=== PATIENT | male | born 1995 | race Caucasian/White ===

== ENCOUNTER 2016-08-21 21:24 | Emergency (ER) | payer OTHER ==
[2016-08-21] MEDS ORDERED: LIDOCAINE 2% 10 ML MDV ONE (21:43)
[2016-08-21] MEDS ORDERED: CEPHALEXIN 250 MG Prepack 8 PO STA (21:59)
[2016-08-21] MEDS ORDERED: HYDROcod/ACET 5/325 Prepack 6 PO STA (22:01)
[2016-08-21] MEDS ORDERED: CEPHALEXIN 250 MG Prepack 8 PO ONE (22:01)
[2016-08-21] MEDS ORDERED: HYDROcod/ACET 5/325 Prepack 6 PO ONE (22:04)
== END 2016-08-21 22:08 | disposition home or self-care (01) ==
DX: L03.011 Cellulitis of right finger (principal); R03.0 Elevated blood-pressure reading, without diagnosis of hypertension